=== PATIENT | female | born 1935 | race Caucasian/White ===

== ENCOUNTER 2016-11-22 03:22 | Emergency (ER) | payer OTHER ==
[~2016-11-22] VITALS: Ht 167.6 cm; Wt 59.4 kg
[~2016-11-22 03:22] MED LIST: ADVAIR 250/501 DISK IH; ALBUTEROL SULF8.5 GM; ASPIRIN325 MG PO; CEFTIN500 MG PO; DOCUSATE SODIU100 MG PO; ELIQUIS2.5 MG PO; FERROUS SULFAT325 MG PO; GLUCOTROL5 M1 PO; INDERAL LA120 MG; INDERAL LA120 MG PO; LEVOTHYROXINE; METFORMIN HCL500 MG PO; METRONIDAZOLE500 MG PO; PRINIVIL10 MG PO; PRINIVIL5 MG PO; PROBIOTIC ACID1 EAC3 PO; PROBIOTIC1 EAC1 PO; PROVENTIL HFA6.7 GM IH; SIMVASTATIN40 MG PO; SPIRIVA1 INHALATI IH; SYNTHROID75 MCG PO; TYLENOL EXTRA500 MG PO; TYLENOL REGULA325 MG PO; VANCOCIN HCL125 MG PO
[2016-11-22 03:41] LABS: HEMATOCRIT 29.1 % (36.0-46.0); MCH 25.1 PG (29.0-34.0); MCV 78.6 FL (83-99); MEAN PLAT.VOLUME 9.6 uM^3 (9.5-12.4); PLATELET COUNT 155 K/uL (156-360); RBC DIS.WIDTH-SD 40.3 % (39-53); WHITE BLOOD COUNT 8.6 K/uL (4.1-10.2)
[2016-11-22 03:51] LABS: CHLORIDE 97 mEq/L (99-109)
[2016-11-22 03:52] LABS: POTASSIUM 4.5 mEq/L (3.7-5.4); SODIUM 129 mEq/L (136-147)
[2016-11-22 03:53] LABS: GLUCOSE 144 mg/dL (70-99)
[2016-11-22 03:55] LABS: ANION GAP 7 MEQ/L (2-14)
[2016-11-22 03:57] LABS: GFR ESTIMATE (CALCULATED) > 59 mL/min/
[2016-11-22 03:58] LABS: UREA NITROGEN (BUN) 17 mg/dL (9-23)
[2016-11-22 04:06] LABS: TROP-I INTERPRETATION NEGATIVE; TROPONIN-I < 0.01 ng/mL (0.0-0.30)
[2016-11-22] MEDS ORDERED: LEVAQUIN750 MG PO (04:13)
[2016-11-22 06:22] VITALS: BP 153/69
== END 2016-11-22 06:23 | disposition home or self-care (01) ==
LOC: EME → EDBD 03:22 → EME 03:22
PROVIDERS: Emergency Medicine
DX: J18.9 Pneumonia, unspecified organism (principal); R42 Dizziness and giddiness; J44.9 Chronic obstructive pulmonary disease, unspecified; I10 Essential (primary) hypertension; E11.9 Type 2 diabetes mellitus without complications; Z79.82 Long term (current) use of aspirin; Z87.891 Personal history of nicotine dependence
CPT/HCPCS: 71020; 80048; 83605; 83880; 84484; 85027; 93005; 99281; 99285; J1956

== ENCOUNTER 2017-04-24 15:47 | Emergency (ER) | payer OTHER ==
[~2017-04-24] VITALS: Ht 167.6 cm; Wt 56.3 kg
[~2017-04-24 15:47] MED LIST changes: +LEVAQUIN750 MG PO
[2017-04-24 16:30] LABS: EOSINOPHIL (%) 0.1 % (0-5); HEMATOCRIT 36.5 % (36.0-46.0); IMMATURE GRANULOCYTE (%) 0.4 % (0.0-0.7); IMMATURE GRANULOCYTE COUNT 0.1 K/uL; INSTRUMENT ABS NEUTROPHIL CT 14.3 K/uL; LYMPHOCYTE COUNT 1.4 K/uL (1.0-2.8); MCH 30.8 PG (29.0-34.0); MCHC 32.6 G/DL (30.0-36.0); MCV 94.6 FL (83-99); MEAN PLAT.VOLUME 10.3 uM^3 (9.5-12.4); MONOCYTE (%) 3.8 % (3-12); MONOCYTE COUNT 0.6 K/uL (0-0.8); NEUTROPHIL (%) 87.2 % (45-76); NEUTROPHIL COUNT 14.3 K/uL (1.8-6.4); PLATELET COUNT 180 K/uL (156-360); RBC DIS.WIDTH-CV 13.2 % (11.8-14.6); RBC DIS.WIDTH-SD 46.1 % (39-53); RED BLOOD COUNT 3.86 M/uL (3.80-5.20); WHITE BLOOD COUNT 16.5 K/uL (4.1-10.2)
[2017-04-24 16:42] LABS: CHLORIDE 102 mEq/L (99-109); POTASSIUM 3.7 mEq/L (3.7-5.4); SODIUM 136 mEq/L (136-147)
[2017-04-24 16:43] LABS: GLUCOSE 121 mg/dL (70-99)
[2017-04-24 16:45] LABS: ANION GAP 10 MEQ/L (2-14)
[2017-04-24 16:47] LABS: GFR ESTIMATE (CALCULATED) > 59 mL/min/
[2017-04-24 16:48] LABS: UREA NITROGEN (BUN) 11 mg/dL (9-23)
[2017-04-24] MEDS ORDERED: ALBUTEROL2.5 MG/3 M IH (17:35)
[2017-04-24] MEDS ORDERED: DOXYCYCLINE HY100 MG PO (17:38)
[2017-04-24] MEDS ORDERED: NEBULIZER MC (17:38)
[2017-04-24 20:17] VITALS: BP 130/67
== END 2017-04-24 20:17 | disposition home or self-care (01) ==
LOC: EME 15:47
PROVIDERS: Emergency Medicine
DX: J44.9 Chronic obstructive pulmonary disease, unspecified (principal); I48.91 Unspecified atrial fibrillation; Z79.01 Long term (current) use of anticoagulants; R11.0 Nausea; I10 Essential (primary) hypertension; E11.9 Type 2 diabetes mellitus without complications; Z79.84 Long term (current) use of oral hypoglycemic drugs; Z79.82 Long term (current) use of aspirin; Z87.891 Personal history of nicotine dependence
CPT/HCPCS: 71010; 80048; 85025; 93005; 94640; 99281; 99285

== ENCOUNTER 2017-12-21 06:32 | Emergency (ER) | payer OTHER ==
[~2017-12-21] VITALS: Ht 162.6 cm; Wt 56.8 kg
[~2017-12-21 06:32] MED LIST changes: +ALBUTEROL2.5 MG/3 M IH; +DOXYCYCLINE HY100 MG PO; +NEBULIZER MC
[2017-12-21 10:51] VITALS: BP 113/53
== END 2017-12-21 11:04 | disposition home or self-care (01) ==
LOC: EME 06:32
PROC: 0HQKXZZ Repair Right Lower Leg Skin, External Approach (ICD-10-PCS; principal; 2017-12-21)
DX: S81.011A Laceration without foreign body, right knee, initial encounter (principal); W06.XXXA Fall from bed, initial encounter; Z79.01 Long term (current) use of anticoagulants; J44.9 Chronic obstructive pulmonary disease, unspecified; Z88.2 Allergy status to sulfonamides; Z88.8 Allergy status to other drugs, medicaments and biological substances
CPT/HCPCS: 73564; 99281; 99284